=== PATIENT | female | born 1935 | race Caucasian/White ===

== ENCOUNTER 2016-07-09 13:57 | Emergency (ER) | payer MEDICARE, BC ==
[~2016-07-09 13:57] MED LIST: BABY ASPIRIN81 MG PO; BAYER ASPIRIN325 M1 PO; CALCIUM 600 +1 EA22 PO; CALCIUM+D; CEFDINIR300 M1 PO; DAILY VITAMIN1 EAC4 PO; FISH OIL 11000 MG/CA PO; FLEXERIL10 MG PO; FOSAMAX70 MG; GLUCOSAMINE & C1 CAP PO; IBUPROFEN M200 M1 PO; IBUPROFEN200 M1 PO; LIPITOR20 MG PO; MACROBID 100 M100 MG PO; METOPROLOL SUCC25 M1 PO; MULTIVITAMIN1 TAB PO; MVI; NITROGLYCERIN0.4 MG SL; NOLVADEX10 MG PO; NORCO 7.5/325 T1 TAB PO; OS-CAL 500+D TA1 TAB PO; PLAVIX75 M1 PO; PLAVIX75 MG PO; PRINIVIL10 M1 PO; PRINIVIL2.5 MG PO; PRINIVIL5 M1 PO; SKELAXIN400 MG; TIMOLOL MALEATE BOTH EYES; TOPROL XL25 MG PO; [UNRECOGNIZED DRUG - OTHER] PO
== END 2016-07-09 16:09 ==
LOC: EDMED 13:57
DX: S41.102A Unspecified open wound of left upper arm, initial encounter (principal); Z90.12 Acquired absence of left breast and nipple; X58.XXXA Exposure to other specified factors, initial encounter